=== PATIENT | female | born 1990 | race Caucasian/White ===

== ENCOUNTER 2018-11-29 17:10 | Emergency (ER) | payer OTHER ==
[2018-11-29 17:23] VITALS: BP 105/75
[2018-11-29] MEDS ORDERED: ERYTHROMYCIN OPHTH OINT 1 GM TUBE LEFTEYE STA (17:46)
--- NOTE | 2018-11-29 17:49 | ED Physician Documentation ---
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 She also has URI symptoms including runny nose sore throat and sneezing. No fevers.) Review of Systems Constitutional: denies: Fever, Chills Eyes: reports: Discharge, Irritation. denies: Loss of vision, Decreased vision, Photophobia Nose: reports: Rhinorrhea / runny nose, Congestion PD PAST MEDICAL HISTORY - Present Medications Home Medications: Ambulatory Orders Medication Instructions Recorded Confirmed Erythromycin Base [Erythromycin 1 appful OP 5XD 7 Days #1 oint...g. 11/29/18 Ophthalmic Ointment] - Allergies Allergies/Adverse Reactions: Allergies Allergy/AdvReac Type Severity Reaction Status Date / Time gluten Allergy Cramps Verified 11/29/18 17:23 PD ED PE NORMAL - Vitals Vital signs reviewed: Yes - General General: Alert and oriented X 3, No acute distress - HEENT HEENT: Other (Nonspecific left eye conjunctivitis without drainage at this juncture, TMs and oropharynx are normal. She does have rhinorrhea.) - Neck Neck: Supple, no meningeal sign, No bony TTP - Psych Psych: Normal mood, Normal affect Results - Vitals Vitals: Vital Signs - 24 hr 11/29/18 17:19 Temperature 36.9 C Heart Rate 94 Respiratory 16 Rate Blood Pressure 105/75 O2 Saturation 98 Oxygen O2 Source Room air PD MEDICAL DECISION MAKING - ED course ED course: This is a 27-year-old with left-sided nonspecific conjunctivitis, could be viral or bacterial. Departure - Departure Disposition: 01 Home, Self Care Clinical Impression: Conjunctivitis Qualifiers: Conjunctivitis type: acute Acute conjunctivitis type: unspecified Laterality: left Qualified Code(s): H10.32 - Unspecified acute conjunctivitis, left eye Condition: Good Record reviewed to determine appropriate education?: Yes Instructions: ED Conjunctivitis Nonspecific Prescriptions: Erythromycin Base [Erythromycin Ophthalmic Ointment] 1 appful OP 5XD 7 Days #1 oint...g. Comments: Follow-up with your infirmary attendant in 3 days if not better. Return for new or worsening symptoms. Forms: Activity restrictions
== END 2018-11-29 18:00 | disposition home or self-care (01) ==
LOC: ED 17:10
DX: H10.32 Unspecified acute conjunctivitis, left eye (principal); J34.89 Other specified disorders of nose and nasal sinuses
CPT/HCPCS: 99283; J3490

== ENCOUNTER 2019-01-22 08:00 | Outpatient (CLI) | payer OTHER ==
[2019-01-22 20:24] LABS: CANDIDA GROUP DNA NEGATIVE (NEGATIVE); CANDIDA KRUSEI DNA NEGATIVE (NEGATIVE); TRICHOMONAS VAGINALIS DNA NEGATIVE (NEGATIVE)
[2019-01-22 21:04] LABS: TRICHOMONAS VAGINALIS DNA NEGATIVE (NEGATIVE)
== END 2019-01-22 23:59 | disposition home or self-care (01) ==
LOC: LAB.R 08:00
PROVIDERS: ATTEND Obstetrics & Gynecology
DX: Z11.3 Encounter for screening for infections with a predominantly sexual mode of transmission (principal); Z30.9 Encounter for contraceptive management, unspecified
CPT/HCPCS: 87491; 87591; 87661; 87801